=== PATIENT | female | born 1980 | race Caucasian/White ===

== ENCOUNTER 2017-12-09 18:52 | Emergency (ER) | payer OTHER ==
[~2017-12-09] VITALS: Ht 172.7 cm; Wt 141.1 kg
[2017-12-09 18:59] VITALS: BP 159/76
[2017-12-09] MEDS ORDERED: NACL 0.9% 1,000 ML IV ONE (19:14)
[2017-12-09] MEDS ORDERED: KETOROLAC 30 MG/ML VIAL IM ONE (19:15)
[2017-12-09] MEDS: KETOROLAC 30 MG/ML VIAL IVP ONE (19:58)
[2017-12-09] MEDS: NACL 0.9% 1,000 ML IV ONE (19:58)
[2017-12-09 20:26] LABS: BASOPHILS % (AUTO) 0.2 % (0.0-2.0); EOSINOPHILS % (AUTO) 0.4 % (0.0-4.0); HEMATOCRIT 38.3 % (36-48); HEMOGLOBIN 12.6 g/dL (12.0-16.0); LYMPHOCYTES # (AUTO) 3.2 K/uL (2.5-16.5); MEAN CORPUSCULAR HEMOGLOBIN 27 pg (27-31); MEAN CORPUSCULAR HGB CONC 33 g/dL (33-37); MEAN CORPUSCULAR VOLUME 81.6 fL (80-94); MONOCYTES # (AUTO) 0.4 K/uL (0.8-1.0); MONOCYTES % (AUTO) 4.4 % (1.7-9.3); NEUTROPHILS # (AUTO) 5.1 K/uL (1.8-7.7); PLATELET COUNT (AUTO) 311 K/uL (140-450); RED BLOOD CELL COUNT(AUTO) 4.69 MIL/uL (4.20-5.40); RED CELL DISTRIBUTION WIDTH 14.9 % (11.6-13.7); WHITE BLOOD COUNT (AUTO) 8.7 K/uL (4.8-10.8)
[2017-12-09 20:51] LABS: ANION GAP 10.8 (8-16); CARBON DIOXIDE 27.9 mmol/L (21-32); POTASSIUM 3.7 mmol/L (3.5-5.1)
[2017-12-09 20:52] LABS: CREATININE 0.7 mg/dL (0.6-1.3)
[2017-12-09 20:56] LABS: ALBUMIN 3.5 g/dL (3.4-5.0); TOTAL BILIRUBIN 0.4 mg/dL (0.0-1.0)
[2017-12-09 21:45] LABS: APPEARANCE,URINE CLOUDY (CLEAR); BILIRUBIN,URINE NEGATIVE (NEGATIVE); BLOOD, URINE TRACE (NEGATIVE); COLOR,URINE YELLOW (YELLOW); UGLUCOSE NEGATIVE (NEGATIVE)
[2017-12-09 21:46] LABS: LEUKOCYTE ESTERASE ,URINE NEGATIVE (NEGATIVE); NITRITE, URINE NEGATIVE (NEGATIVE)
[2017-12-09 22:01] LABS: RBC,URINE 0-5 (RARE) /HPF (0-5)
[2017-12-09 22:02] LABS: URINE AMORPHOUS URATE 3+ /HPF (None Seen); WBC,URINE NONE SEEN /HPF (0-5)
[2017-12-09 22:25] VITALS: BP 130/79
== END 2017-12-09 22:26 | disposition home or self-care (01) ==
LOC: MED 18:52
DX: R10.13 Epigastric pain (principal)
CPT/HCPCS: 36415; 74176; 76705; 80053; 81001; 81025; 83690; 85025; 96374; 99285; J1885; J7030; Q0092

== ENCOUNTER 2018-03-01 11:59 | Emergency (ER) | payer OTHER ==
[~2018-03-01] VITALS: Ht 172.7 cm; Wt 140.6 kg
[2018-03-01 12:05] VITALS: BP 157/88
--- NOTE | 2018-03-01 12:07 | NUR ---
PT AMBULATES TO BED 7
--- NOTE | 2018-03-01 12:16 | NUR ---
AAO X4 PT BIB NIECE WITH C/O RHINORRHEA X 4 DAYS AND "BAD" COUGH X 3 DAYS WITH SOB WHEN COUGHING; TOOK DAYQUIL AND DELSYM WITH NO RELIEF
--- NOTE | 2018-03-01 12:50 | NUR ---
Patient being evaluated by physician at bedside.
--- NOTE | 2018-03-01 13:15 | NUR ---
Patient discharged with v/s stable. Written and verbal after care instructions given and explained. Patient alert, oriented and verbalized understanding of instructions. Ambulatory with steady gait. All questions addressed prior to discharge. ID band removed. Patient advised to follow up with PMD. Rx of PROMETHAZINE AND TAMIFLU given. Patient educated on indication of medication including possible reaction and side effects. Opportunity to ask questions provided and answered.
[2018-03-01 13:26] VITALS: BP 157/88
== END 2018-03-01 13:15 | disposition home or self-care (01) ==
LOC: MED 11:59
DX: J11.1 Influenza due to unidentified influenza virus with other respiratory manifestations (principal)
CPT/HCPCS: 99283

== ENCOUNTER 2018-06-17 19:24 | Emergency (ER) | payer OTHER ==
[~2018-06-17] VITALS: Ht 172.7 cm; Wt 145.1 kg
[2018-06-17 19:48] VITALS: BP 150/90
--- NOTE | 2018-06-17 19:50 | NUR ---
TO LOBBY A/W BED, AMBULATORY
--- NOTE | 2018-06-17 20:33 | NUR ---
PT AMBULATORY TO BED 5.
--- NOTE | 2018-06-17 20:38 | NUR ---
27 Y FEMALE BIB FAMILY C/O EPIGASTRIC PAIN RADIATING TO LOWER FLANK FOR 2 DAYS. PAIN 8/10 ACHING. +NAUSEA, -VOMITING. DENIES CONSTIPATION OR DIARRHEA, STATES BOWEL MOVEMENT WAS STRAINED TODAY. ABDOMEN SOFT AND ROUND. BOWEL SOUNDS ACTIVE IN ALL 4 QUADRANTS. VSS AT THIS TIME, AA0X4. BED IS DOWN, LOCKED, BED RAIL X 1, ERMD NOTIFIED. PMH- DENIES
--- NOTE | 2018-06-17 20:39 | NUR ---
US AT BEDSIDE
--- NOTE | 2018-06-17 20:39 | NUR ---
PT UNABLE TO GIVE URINE AT THIS TIME
--- NOTE | 2018-06-17 21:19 | NUR ---
REPORT GIVEN TO GILDA SCHMIDT
--- NOTE | 2018-06-17 21:30 | NUR ---
RECEIVED REPORT FROM AM NURSE. PT LAYING IN BED, FAMILY AT BEDSIDE. PT REPORTS 5/10 TOLERABLE EPIGASTRIC PAIN RADIATING TO R FLANK. ALL NEEDS MET AT THIS TIME.
[2018-06-17 21:35] LABS: BASOPHILS % (AUTO) 0.3 % (0.0-2.0); EOSINOPHILS # (AUTO) 0.1 K/uL (0-0.4); EOSINOPHILS % (AUTO) 1.2 % (0.0-4.0); HEMATOCRIT 37.3 % (36-48); HEMOGLOBIN 12.2 g/dL (12.0-16.0); LYMPHOCYTES # (AUTO) 3.5 K/uL (2.5-16.5); LYMPHOCYTES % (AUTO) 37.6 % (20.5-51.1); MEAN CORPUSCULAR HEMOGLOBIN 27 pg (27-31); MEAN CORPUSCULAR HGB CONC 33 g/dL (33-37); MEAN CORPUSCULAR VOLUME 82.2 fL (80-94); MONOCYTES # (AUTO) 0.5 K/uL (0.8-1.0); MONOCYTES % (AUTO) 4.8 % (1.7-9.3); NEUTROPHILS # (AUTO) 5.3 K/uL (1.8-7.7); NEUTROPHILS % (AUTO) 56.1 % (42.2-75.2); PLATELET COUNT (AUTO) 323 K/uL (140-450); RED BLOOD CELL COUNT(AUTO) 4.54 MIL/uL (4.20-5.40); RED CELL DISTRIBUTION WIDTH 14.9 % (11.6-13.7); WHITE BLOOD COUNT (AUTO) 9.4 K/uL (4.8-10.8)
[2018-06-17 21:48] LABS: ANION GAP 10.5 (8-16); CARBON DIOXIDE 29.6 mmol/L (21-32); CREATININE 0.7 mg/dL (0.6-1.3); POTASSIUM 4.1 mmol/L (3.5-5.1)
[2018-06-17 21:56] LABS: ALBUMIN 3.3 g/dL (3.4-5.0); TOTAL BILIRUBIN 0.3 mg/dL (0.0-1.0)
--- NOTE | 2018-06-17 22:11 | NUR ---
Dr. Wallace evaluating patient at bedside.
--- NOTE | 2018-06-17 22:44 | NUR ---
PT TAKEN TO XR
--- NOTE | 2018-06-17 22:53 | NUR ---
PT RETURN FROM XRAY
[2018-06-17 23:14] VITALS: BP 139/88
--- NOTE | 2018-06-17 23:14 | NUR ---
Patient discharged with v/s stable. Written and verbal after care instructions given and explained. Patient alert, oriented and verbalized understanding of instructions. Ambulatory with steady gait. All questions addressed prior to discharge. ID band removed. Patient advised to follow up with PMD. Rx of MINERAL OIL AND LACTULOSE 10G/15ML given. Patient educated on indication of medication including possible reaction and side effects. Opportunity to ask questions provided and answered.
== END 2018-06-17 23:14 | disposition home or self-care (01) ==
LOC: MED 19:24
DX: K59.00 Constipation, unspecified (principal)
CPT/HCPCS: 36415; 74018; 76705; 80053; 81002; 81025; 83690; 85025; 99284; Q0092

== ENCOUNTER 2018-06-21 12:21 | Emergency (ER) | payer OTHER ==
[~2018-06-21] VITALS: Ht 170.2 cm; Wt 142.9 kg
[2018-06-21 12:26] VITALS: BP 147/78
--- NOTE | 2018-06-21 12:30 | NUR ---
BIB SELF. AAO X4 C/O PRODUCTIVE COUGH WITH CLEAR PHLEGM X 2 DAYS, + NAUSEA, -V/D. AFEBRILE. CLEAR DELORES LUNG SOUNDS UPON AUSCULTATION. DENIES SOB. SYMMETRICAL LUNG EXPANSION. HOB UP. BED SIDE RAILSUP X1. ON LOW BED POSITION, LOCKED. ER MADE AWARE OF PT STATUS.
--- NOTE | 2018-06-21 13:40 | NUR ---
DR NICHOLSON AT BEDSIDE FOR PT EVALUATION
[2018-06-21] MEDS ORDERED: ALBUTEROL SULFATE/IPRATROPIU 3 ML SOL IH ONE (13:45)
[2018-06-21] MEDS ORDERED: cefTRIAXone 1,000 MG in LIDOCAINE 1% ***ER ONLY *** 2.1 ML IM ONE (13:45)
[2018-06-21] MEDS ORDERED: methylPREDNISolone SS 125 MG in WATER STERILE 2 ML IM ONE (13:45)
[2018-06-21] MEDS ORDERED: methylPREDNISolone SS 125 MG/2 ML VIAL ONE (14:08)
[2018-06-21] MEDS ORDERED: cefTRIAXone 1,000 MG VIAL ONE (14:08)
[2018-06-21] MEDS ORDERED: LIDOCAINE MPF 1% 5mL VIAL ONE (14:10)
[2018-06-21 14:54] VITALS: BP 134/72
--- NOTE | 2018-06-21 14:54 | NUR ---
Patient discharged with v/s stable. Written and verbal after care instructions given and explained. Patient alert, oriented and verbalized understanding of instructions. Ambulatory with steady gait. All questions addressed prior to discharge. ID band removed. Patient advised to follow up with PMD. Rx of Albuterol Sulfate 0.083%, Azithromycin, Prednisone given. Patient educated on indication of medication including possible reaction and side effects. Opportunity to ask questions provided and answered.
== END 2018-06-21 14:54 | disposition home or self-care (01) ==
LOC: MED 12:21
DX: J45.909 Unspecified asthma, uncomplicated (principal)
CPT/HCPCS: 81002; 81025; 94640; 96372; 99283; J0696; J2001; J2930; J7620

== ENCOUNTER 2018-06-25 18:49 | Emergency (ER) | payer OTHER ==
[~2018-06-25] VITALS: Ht 170.2 cm; Wt 140.6 kg
[2018-06-25 18:53] VITALS: BP 155/87
[2018-06-25 18:55] VITALS: BP 155/87
--- NOTE | 2018-06-25 18:55 | NUR ---
BIB SELF. PT AAO X4 C/O R UPPER NECK PAIN 7/10 X EARLIER TODAY, + SWELLING. PT STATES MILD DIFFICULTY SWALLOWING TO R SIDE OF THE THROAT. PT DENIES SOB. PT WAS SEEN May FOR ACUTE BRONCHITIS. PT WAS PRESCRIBED AZITHROMYCIN AND PREDNISONE. PT STATES SHE STOPPED TAKING PREDNISONE BECAUSE OF EXCESSIVE SWEATING. PT IS AFEBRILE. HOB UP. BED SIDE RAILS UP X1. ON LOW BED POSITION, LOCKED. ER MADE AWARE OF PT STATUS.
--- NOTE | 2018-06-25 19:13 | NUR ---
Pt report given to ROXANA Christensen. Transfer of care at this time.
--- NOTE | 2018-06-25 19:13 | NUR ---
Bedside report recieved from ROXANA Fried. Transfer of care at this time
[2018-06-25] MEDS ORDERED: KETOROLAC 60 MG/2 ML VIAL IM ONE (20:45)
== END 2018-06-25 21:04 | disposition home or self-care (01) ==
LOC: MED 18:49
DX: R59.0 Localized enlarged lymph nodes (principal)
CPT/HCPCS: 96372; 99283; J1885

== ENCOUNTER 2018-08-08 23:41 | Emergency (ER) | payer OTHER ==
[~2018-08-08] VITALS: Ht 172.7 cm; Wt 140.6 kg
[2018-08-08 23:42] VITALS: BP 122/70
--- NOTE | 2018-08-08 23:42 | NUR ---
TO BED #12 AMBULATORY
--- NOTE | 2018-08-08 23:42 | NUR ---
37 Y/O FEMALE PRESENTS TO ED WITH C/O RUQ ABD PAIN X1 DAY. NON-RADIATING. NO N/V. ALSO C/O OF EPIGASTRIC BURNING SENSATION MOVING UP TOWARD HER THROAT. VSS. POSITIONED IN BED FOR COMFORT. ER MD AWARE. CONTINUE TO MONITOR.
[2018-08-09] MEDS ORDERED: MORPHINE SULFATE 4 MG/ML SYR IM ONE (00:05)
[2018-08-09 00:15] LABS: APPEARANCE,URINE HAZY (CLEAR); BILIRUBIN,URINE NEGATIVE (NEGATIVE); BLOOD, URINE 2+ (NEGATIVE); COLOR,URINE YELLOW (YELLOW); LEUKOCYTE ESTERASE ,URINE NEGATIVE (NEGATIVE); NITRITE, URINE NEGATIVE (NEGATIVE); PH,URINE 5.5 (5.0-9.0); UGLUCOSE NEGATIVE (NEGATIVE)
--- NOTE | 2018-08-09 00:15 | NUR ---
Labs drawn and sent to lab.
--- NOTE | 2018-08-09 00:18 | NUR ---
Patient refused IM injection of Morphine. Pt requesting "something less strong." and also in pill form. Dr. Gibbons made aware.
[2018-08-09 00:20] LABS: BASOPHILS % (AUTO) 0.1 % (0.0-2.0); EOSINOPHILS # (AUTO) 0.1 K/uL (0-0.4); EOSINOPHILS % (AUTO) 1.3 % (0.0-4.0); HEMATOCRIT 36.8 % (36-48); HEMOGLOBIN 12.1 g/dL (12.0-16.0); LYMPHOCYTES # (AUTO) 3.2 K/uL (2.5-16.5); LYMPHOCYTES % (AUTO) 40.4 % (20.5-51.1); MEAN CORPUSCULAR HEMOGLOBIN 27 pg (27-31); MEAN CORPUSCULAR HGB CONC 33 g/dL (33-37); MEAN CORPUSCULAR VOLUME 81.7 fL (80-94); MONOCYTES # (AUTO) 0.4 K/uL (0.8-1.0); MONOCYTES % (AUTO) 4.8 % (1.7-9.3); NEUTROPHILS # (AUTO) 4.2 K/uL (1.8-7.7); NEUTROPHILS % (AUTO) 53.4 % (42.2-75.2); PLATELET COUNT (AUTO) 315 K/uL (140-450); WHITE BLOOD COUNT (AUTO) 7.9 K/uL (4.8-10.8)
[2018-08-09] MEDS ORDERED: ACETAMINOPHEN EXTRA STRENGTH 500 MG TAB PO ONE (00:20)
[2018-08-09 00:25] LABS: RBC,URINE 0-5 /HPF (0-5)
[2018-08-09] MEDS ORDERED: ACETAMINOPHEN EXTRA STRENGTH 500 MG TAB ONE (00:30)
[2018-08-09 00:32] LABS: ANION GAP 9.3 (8-16); CARBON DIOXIDE 28.4 mmol/L (21-32); CREATININE 0.7 mg/dL (0.6-1.3); POTASSIUM 3.7 mmol/L (3.5-5.1)
[2018-08-09 00:37] LABS: ALBUMIN 3.2 g/dL (3.4-5.0); TOTAL BILIRUBIN 0.4 mg/dL (0.0-1.0)
--- NOTE | 2018-08-09 00:43 | NUR ---
Ultrasound at bedside.
--- NOTE | 2018-08-09 02:05 | NUR ---
X-Ray at bedside.
[2018-08-09] MEDS ORDERED: LACTULOSE 20 GM/30 ML UDC PO ONE (02:50)
[2018-08-09 03:05] VITALS: BP 122/70
--- NOTE | 2018-08-09 03:05 | NUR ---
DISCHARGE PAPERS GIVEN TO PT. 04/05 PAIN BUT TOLLERABLE. VSS. RX OF MIRALAX GIVEN. SIDE EFFECTS EXPLAINED. INSTRUCTED TO F/U WITH PCP AND WHEN TO RETURN TO ER. PT VERBALLIZED UNDERSTANDING OF DC INSTRUCTIONS. ALL QUESTOINS ANSWRED.
== END 2018-08-09 03:05 | disposition home or self-care (01) ==
LOC: MED 23:41
DX: K59.00 Constipation, unspecified (principal); R06.00 Dyspnea, unspecified
CPT/HCPCS: 36415; 74018; 76705; 80053; 81001; 81025; 83690; 85025; 87086; 99284; Q0092; J2270

== ENCOUNTER 2019-03-03 07:01 | Emergency (ER) | payer OTHER ==
[~2019-03-03] VITALS: Ht 170.2 cm; Wt 134.7 kg
[2019-03-03 07:08] VITALS: BP 122/73
[2019-03-03] MEDS ORDERED: PENICILLIN G BENZATHINE L-A 1.2 MU/2 ML SYR IM ONE (07:30)
[2019-03-03] MEDS ORDERED: KETOROLAC 60 MG/2 ML VIAL IM ONE (07:30)
[2019-03-03 07:55] VITALS: BP 122/73
== END 2019-03-03 07:55 | disposition home or self-care (01) ==
LOC: MED 07:01
DX: J02.0 Streptococcal pharyngitis (principal)
CPT/HCPCS: 96372; 99283; J0561; J1885

== ENCOUNTER 2019-12-13 17:03 | Emergency (ER) | payer OTHER ==
[~2019-12-13] VITALS: Ht 172.7 cm; Wt 145.6 kg
[2019-12-13 17:09] VITALS: BP 139/76
[2019-12-13] MEDS ORDERED: KETOROLAC 30 MG/ML VIAL IM ONE (17:20)
[2019-12-13 18:01] VITALS: BP 139/76
== END 2019-12-13 18:01 | disposition home or self-care (01) ==
LOC: MED 17:03
DX: M79.671 Pain in right foot (principal); Z98.890 Other specified postprocedural states
CPT/HCPCS: 73630; 96372; 99283; J1885; Q0092

== ENCOUNTER 2022-07-28 18:24 | Emergency (ER) | payer OTHER ==
[~2022-07-28] VITALS: Ht 170.2 cm; Wt 147.9 kg
[2022-07-28 18:48] VITALS: BP 176/80
--- NOTE | 2022-07-28 19:41 | NUR ---
PT AMB TO BED #12
[2022-07-28] MEDS ORDERED: KETOROLAC 30 MG/ML VIAL IVP ONE (20:40)
[2022-07-28] MEDS ORDERED: METOCLOPRAMIDE 10 MG/2 ML INJ VIAL IVP ONE (20:40)
[2022-07-28] MEDS ORDERED: NACL 0.9% 1,000 ML IV ONE (20:40)
[2022-07-28] MEDS ORDERED: SUMAtriptan succinate 50 MG TAB PO ONE (20:40)
[2022-07-28] MEDS ORDERED: IBUP-2213 PO (21:00)
[2022-07-28] MEDS ORDERED: amLODIPine 5 MG TAB PO ONE (21:00)
[2022-07-28] MEDS ORDERED: METO-486 PO (21:00)
--- NOTE | 2022-07-28 21:22 | NUR ---
pt. on bed. A/OX4. NOT IN DISTRESS. ATTACHED TO MONITOR.
[2022-07-28 22:16] VITALS: BP 137/84
== END 2022-07-28 22:16 | disposition home or self-care (01) ==
LOC: MED 18:24
DX: G43.909 Migraine, unspecified, not intractable, without status migrainosus (principal); I10 Essential (primary) hypertension
CPT/HCPCS: 81025; 96361; 96374; 96375; 99284; J1885; J2765; J7030

== ENCOUNTER 2023-05-24 21:11 | Emergency (ER) | payer OTHER ==
[~2023-05-24] VITALS: Ht 170.2 cm; Wt 140.2 kg
[~2023-05-24 21:11] MED LIST: IBUP-2213 PO; METO-486 PO
[2023-05-24 21:46] VITALS: BP 142/89; PULSE 77; RESP 19; TEMP 97.3; O2SAT 99
[2023-05-24] MEDS ORDERED: CALC355O5 PO (22:56)
[2023-05-24] MEDS ORDERED: FAMO-90 PO (22:56)
[2023-05-24] MEDS ORDERED: SUCR1TAB35 PO (22:56)
[2023-05-24] MEDS: ALUMINUM HYD/MAG/SIMETHICONE 30 ML UDC PO ONE (23:14)
== END 2023-05-24 23:21 | disposition home or self-care (01) ==
LOC: MED 21:11
DX: K29.70 Gastritis, unspecified, without bleeding (principal); I10 Essential (primary) hypertension; Z79.899 Other long term (current) drug therapy
CPT/HCPCS: 81002; 81025; 99282